=== PATIENT | female | born 1935 | race Asian ===

== ENCOUNTER → 2017-04-27 | Outpatient (CLI) | payer MEDICARE ==
[~2017-04-27] VITALS: Ht 146.1 cm; Wt 41.5 kg
[~2017-04-27] MED LIST: ALEN70TA48 PO; ASPI-556 PO; CARV6 PO; ETHA400 PO; HYDR-309 PO; ISON300 PO; ISOS10TA16 PO; LORA10TA7 PO; PYRI100T2 PO; RANO500T3 PO; RIFA150 PO; SACU1TAB PO
[2017-04-27 13:32] VITALS: BP 123/59
== END | disposition home or self-care (01) ==
LOC: SRCNTR 13:28
PROVIDERS: ATTEND Internal Medicine Critical Care Medicine
DX: I10 Essential (primary) hypertension (principal); A15.0 Tuberculosis of lung; I42.9 Cardiomyopathy, unspecified; R63.0 Anorexia; M06.9 Rheumatoid arthritis, unspecified; Z95.810 Presence of automatic (implantable) cardiac defibrillator; Z87.891 Personal history of nicotine dependence; Z79.82 Long term (current) use of aspirin
CPT/HCPCS: G0463

== ENCOUNTER → 2017-06-21 | Outpatient (CLI) | payer MEDICARE, OTHER ==
[~2017-06-21] VITALS: Ht 146.1 cm; Wt 41.0 kg
[2017-06-21 13:03] VITALS: BP 165/86
== END | disposition home or self-care (01) ==
LOC: SRCNTR 12:47
PROVIDERS: ATTEND Internal Medicine Critical Care Medicine
DX: I10 Essential (primary) hypertension (principal); I42.9 Cardiomyopathy, unspecified; M06.9 Rheumatoid arthritis, unspecified; A15.0 Tuberculosis of lung; R63.0 Anorexia; Z95.810 Presence of automatic (implantable) cardiac defibrillator; Z79.899 Other long term (current) drug therapy; Z90.49 Acquired absence of other specified parts of digestive tract
CPT/HCPCS: G0463

== ENCOUNTER → 2017-10-11 | Outpatient (CLI) | payer MEDICARE ==
[~2017-10-11] VITALS: Ht 144.8 cm; Wt 43.0 kg
[~2017-10-11] MED LIST changes: -RANO500T3 PO
[2017-10-11 11:55] VITALS: BP 161/75
== END | disposition home or self-care (01) ==
LOC: SRCNTR 11:52
PROVIDERS: ATTEND Internal Medicine Critical Care Medicine
DX: A15.0 Tuberculosis of lung (principal); I10 Essential (primary) hypertension; I42.9 Cardiomyopathy, unspecified; M06.9 Rheumatoid arthritis, unspecified; Z79.82 Long term (current) use of aspirin; Z95.810 Presence of automatic (implantable) cardiac defibrillator
CPT/HCPCS: G0463

== ENCOUNTER → 2017-12-29 | Outpatient (CLI) | payer MEDICARE, OTHER ==
[2017-12-29 12:12] LABS: ALBUMIN 3.1 g/dL (3.4-5.0); BILIRUBIN,TOTAL 0.3 mg/dL (0.1-1.0); TOTAL PROTEIN, SERUM 7.3 g/dL (6.4-8.2)
[2017-12-29 12:15] LABS: BILIRUBIN,DIRECT 0.1 mg/dL (0.00-0.20)
== END | disposition home or self-care (01) ==
LOC: LABPV 10:52
PROVIDERS: ATTEND Internal Medicine Critical Care Medicine
DX: A15.0 Tuberculosis of lung (principal)

== ENCOUNTER → 2018-01-04 | Outpatient (CLI) | payer MEDICARE ==
[~2018-01-04] VITALS: Ht 146.1 cm; Wt 43.0 kg
[2018-01-04 13:55] VITALS: BP 149/60
== END | disposition home or self-care (01) ==
LOC: SRCNTR 13:06
PROVIDERS: ATTEND Internal Medicine Critical Care Medicine
DX: A15.0 Tuberculosis of lung (principal); M06.9 Rheumatoid arthritis, unspecified; I42.9 Cardiomyopathy, unspecified; I10 Essential (primary) hypertension; Z95.810 Presence of automatic (implantable) cardiac defibrillator
CPT/HCPCS: G0463

== ENCOUNTER → 2018-03-07 | Outpatient (CLI) | payer MEDICARE, OTHER ==
[~2018-03-07] MED LIST changes: +LEVO500 PO
[2018-03-07 16:09] LABS: ALBUMIN 3.2 g/dL (3.4-5.0); BILIRUBIN,DIRECT 0.1 mg/dL (0.00-0.20); BILIRUBIN,TOTAL 0.5 mg/dL (0.1-1.0); TOTAL PROTEIN, SERUM 7.1 g/dL (6.4-8.2)
== END | disposition home or self-care (01) ==
LOC: LABPV 11:36
PROVIDERS: ATTEND Internal Medicine Critical Care Medicine
DX: A15.0 Tuberculosis of lung (principal)

== ENCOUNTER → 2018-03-09 | Outpatient (CLI) | payer MEDICARE ==
[~2018-03-09] VITALS: Ht 144.8 cm; Wt 43.6 kg
[2018-03-09 13:32] VITALS: BP 155/82
== END | disposition home or self-care (01) ==
LOC: SRCNTR 13:30
PROVIDERS: ATTEND Internal Medicine Critical Care Medicine
DX: A15.0 Tuberculosis of lung (principal); I10 Essential (primary) hypertension; M06.9 Rheumatoid arthritis, unspecified; I42.9 Cardiomyopathy, unspecified; Z95.810 Presence of automatic (implantable) cardiac defibrillator
CPT/HCPCS: G0463

== ENCOUNTER → 2018-04-11 | Outpatient (CLI) | payer MEDICARE ==
[~2018-04-11] MED LIST changes: -ISON300 PO
== END | disposition home or self-care (01) ==
LOC: RADPV 11:39
PROVIDERS: ATTEND Internal Medicine Critical Care Medicine
DX: I70.0 Atherosclerosis of aorta (principal); A15.0 Tuberculosis of lung

== ENCOUNTER → 2018-06-07 | Outpatient (CLI) | payer MEDICARE, MEDICAID ==
[~2018-06-07] VITALS: Ht 144.8 cm; Wt 43.6 kg
[2018-06-07 14:59] VITALS: BP 137/65
== END | disposition home or self-care (01) ==
LOC: SRCNTR 14:32
PROVIDERS: ATTEND Internal Medicine Critical Care Medicine
DX: A15.0 Tuberculosis of lung (principal); M06.9 Rheumatoid arthritis, unspecified; I42.9 Cardiomyopathy, unspecified; I10 Essential (primary) hypertension; G47.33 Obstructive sleep apnea (adult) (pediatric); Z95.810 Presence of automatic (implantable) cardiac defibrillator
CPT/HCPCS: G0463

== ENCOUNTER → 2018-08-08 | Outpatient (CLI) | payer MEDICARE, MEDICAID ==
[~2018-08-08] VITALS: Ht 144.8 cm; Wt 44.5 kg
[~2018-08-08] MED LIST changes: +RANO500T3 PO
[2018-08-08 15:18] VITALS: BP 137/63
== END | disposition home or self-care (01) ==
LOC: SRCNTR 14:36
PROVIDERS: ATTEND Internal Medicine Critical Care Medicine
DX: A15.0 Tuberculosis of lung (principal); M06.9 Rheumatoid arthritis, unspecified; I42.9 Cardiomyopathy, unspecified; I10 Essential (primary) hypertension; G47.33 Obstructive sleep apnea (adult) (pediatric); Z95.810 Presence of automatic (implantable) cardiac defibrillator
CPT/HCPCS: G0463

== ENCOUNTER → 2019-06-22 | Outpatient (CLI) | payer MEDICARE, MEDICAID ==
[~2019-06-22] VITALS: Ht 144.8 cm; Wt 46.5 kg
[~2019-06-22] MED LIST changes: +ALEN70TA10 PO; -ALEN70TA48 PO; +INFLUENZA VIRUS VACCINE QVS 2019-20 (3YR+)/PF 60 MCG/0.5 ML SYRINGE IM ONE; +LEVO-72 PO; -LEVO500 PO; +PNEUMOCOCCAL VACCINE POLYVALENT 0.5 ML VIAL [PPSV23] IM ONE; +PYRI100T19 PO; -PYRI100T2 PO
[2019-06-22 12:20] VITALS: BP 140/68
== END | disposition home or self-care (01) ==
LOC: SRCNTR 12:19
PROVIDERS: ATTEND Internal Medicine Critical Care Medicine
DX: Z23 Encounter for immunization (principal); I42.9 Cardiomyopathy, unspecified; M06.9 Rheumatoid arthritis, unspecified; I10 Essential (primary) hypertension; Z79.82 Long term (current) use of aspirin; Z95.810 Presence of automatic (implantable) cardiac defibrillator
CPT/HCPCS: 90471; 90472; 90686; 90732; G0463